=== PATIENT | female | born 1965 | race Caucasian/White ===

== ENCOUNTER → 2023-05-01 10:46 | Outpatient (CLI) | payer OTHER, MEDICAID, SELFPAY ==
--- NOTE | 2023-05-01 | DI.RAD.S_ITS ---
PROCEDURE: FL JOINT INJECTION LARGE LT INDICATIONS: Other specified arthritis, left shoulder COMPARISON: None. TECHNIQUE: The indications, alternatives, benefits, risks, and complications of the procedure were explained to the patient. Written informed consent was obtained and placed in the chart. The patient was placed in an appropriate position on the fluoroscopy table, and a site was chosen for percutaneous access under fluoroscopic guidance. The site was prepped and draped in a sterile fashion. Local anesthetic was administered using a 1% lidocaine solution. A hypodermic or spinal needle was then used to access the symptomatic joint. Intra-articular location of the needle tip was confirmed by injecting a small amount of contrast, followed by steroid administration. The needle was then withdrawn, and a bandage applied to the puncture site. FINDINGS: Joint injected: Left shoulder Medications injected: 4 mL of 40 mg/mL Kenalog and 0.5% Ropivacaine mixture. Patient's pain before injection: 8 out of 10. Patient's pain after injection: 0 out of 10. Complications: None. IMPRESSION: Successful fluoroscopically guided administration of steroid and anaesthetic solution into the left shoulder joint. Patient reports at she has had prior steroid injections into the shoulder joint. Dictated by: Luke Wooten M.D. on 05/01/2023 at 14:37 Approved by: Luke Wooten M.D. on 05/01/2023 at 14:39
[2023-05-01] MEDS: ROPIVACAINE 0.5% PF 5 MG/ML 20ML VIAL 20 ML INJ (11:15)
[2023-05-01] MEDS: TRIAMCINOLONE 40 MG/ML VIAL INTRA-ARTI (11:15)
[2023-05-01] MEDS: LIDOCAINE 1% 20 ML INJ (11:15)
== END ==
PROVIDERS: PCP Physician Assistant; Referring Provider Physician Assistant Surgical; Visit Provider Physician Assistant Surgical
DX: M13.812 Other specified arthritis, left shoulder (principal)
CPT/HCPCS: 20610; 77002

== ENCOUNTER 2023-10-20 11:25 | Emergency (ER) | payer OTHER, MEDICAID, SELFPAY ==
[2023-10-20 11:38] VITALS: BP 129/54; PULSE 82; RESP 16; TEMP 36.9; O2SAT 96; BMI 39.4
--- NOTE | 2023-10-20 11:53 | ED_ITS ---
HPI - Extremity Problem <Mark Jones PA-C - Last Filed: 10/20/23 14:02> General Chief complaint: Extremity Problem,Nontraumatic Stated complaint: poss blood clot R leg, had knee surgery 10/07 Time Seen by Provider: 10/20/23 11:53 Source: patient Mode of arrival: Wheelchair History of Present Illness HPI Narrative: This is a 58-year-old female presents emergency department due to right lower extremity edema after OR for a right knee surgery [address] Murdock. Surgery was performed without complications, patient was discharged on ASA 81 mg b.i.d. which she has been taking as prescribed. She was noticed some pain and swelling to the right knee down on her right lower extremity. Denies any pain out of proportion, numbness, fevers, or any other concerning signs or symptoms. Patient's daughter reports that the patient has been walking ?all over it?, with minimal elevation. Related Data Home Medications Medication Instructions Recorded Confirmed lorazepam 1 mg tablet ##0 04/13/16 Previous Rx's Medication Instructions Recorded clonazepam 1 mg tablet (Klonopin) 1 mg PO BID PRN ##14 04/13/16 Allergies Allergy/AdvReac Type Severity Reaction Status Date / Time acetaminophen [From Vicodin] Allergy Verified 10/20/23 11:49 buspirone Allergy Verified 10/20/23 11:49 gabapentin Allergy Verified 10/20/23 11:49 hydrocodone [From Vicodin] Allergy Verified 10/20/23 11:49 midazolam [From Versed] Allergy Verified 10/20/23 11:49 Penicillins Allergy Verified 10/20/23 11:49 Review of Systems <Mark Jones PA-C - Last Filed: 10/20/23 14:02> Review of Systems Narrative: GENERAL: Denies chills, fatigue, malaise, fever, sweats. HEENT: Denies sinus pain, ear pain, sore throat, difficulty swallowing, dizziness. RESPIRATORY: Denies dyspnea, cough, wheezing, hemoptysis, sputum. CARDIOVASCULAR: Denies chest pain, palpitations, orthopnea, edema, GASTROINTESTINAL: Denies nausea, vomiting, abdominal pain, diarrhea, constipation, melena. : Denies dysuria, frequency, incontinence, hematuria, urinary retention. MUSCULOSKELETAL: Right lower extremity pain and edema SKIN: Denies rash, skin lesions, or other NEUROLOGIC: Denies weakness, headache, numbness, change in speech, confusion, seizures, incoordination. PSYCHIATRIC: No concerning psychosocial issues. 12 point review of systems is negative except for those stated above Patient History <ELIZABETH Caldwell Last Filed: 10/20/23 14:02> Social History Smoking Status: Former smoker Smoking Status: Former smoker alcohol intake frequency: other Substance Use Type: does not use Exam <ELIZABETH Caldwell Last Filed: 10/20/23 14:02> Narrative Exam Narrative: GENERAL: Well-developed patient, in mild distress. HEAD: Atraumatic. Normocephalic. EYES: Pupils equal round and reactive. Extraocular motions intact. No scleral icterus. No injection or drainage. ENT: Nose without bleeding, purulent drainage. Throat without erythema, tonsillar hypertrophy or exudate. Airway patent. NECK: Trachea midline. Non tender EXTREMITIES: Diffuse 1+ pitting edema to the right lower extremity from the knee down. No significant spreading erythema or purulent drainage from the incision. She was neurovascularly intact. NEURO: AOx3. SKIN: No rash or erythema of visible areas Initial Vital Signs Initial Vital Signs: Vital Signs Temperature 98.4 F 10/20/23 11:38 Pulse Rate 82 10/20/23 11:38 Respiratory Rate 16 10/20/23 11:38 Blood Pressure 129/54 L 10/20/23 11:38 Pulse Oximetry 96 10/20/23 11:38 Oxygen Delivery Method Room Air 10/20/23 11:38 <Ye Mondragon DO - Last Filed: 10/20/23 14:26> Initial Vital Signs Initial Vital Signs: Vital Signs Temperature 98.4 F 10/20/23 11:38 Pulse Rate 82 10/20/23 11:38 Respiratory Rate 16 10/20/23 11:38 Blood Pressure 129/54 L 10/20/23 11:38 Pulse Oximetry 96 10/20/23 11:38 Oxygen Delivery Method Room Air 10/20/23 11:38 Course <ELIZABETH Caldwell Last Filed: 10/20/23 14:02> Orders Ordered: ED Orders 10/20/23 12:11 US periph venous low extrem rt Stat 10/20/23 12:25 CBC Auto Diff [Complete Blood Count AUTO DIFF] Stat Vital Signs Vital signs: Vital Signs - 8 hr 10/20/23 11:38 10/20/23 12:21 10/20/23 13:30 Temperature 98.4 F Pulse Rate 82 78 Pulse Rate [Right] 74 Respiratory Rate 16 Blood Pressure 129/54 L 135/63 Pulse Oximetry 96 94 Oxygen Delivery Method Room Air Room Air <Ye Mondragon DO - Last Filed: 10/20/23 14:26> Orders Ordered: ED Orders 10/20/23 12:11 US periph venous low extrem rt Stat 10/20/23 12:25 CBC Auto Diff [Complete Blood Count AUTO DIFF] Stat Vital Signs Vital signs: Vital Signs - 8 hr 10/20/23 11:38 10/20/23 12:21 10/20/23 13:30 Temperature 98.4 F Pulse Rate 82 78 Pulse Rate [Right] 74 Respiratory Rate 16 Blood Pressure 129/54 L 135/63 Pulse Oximetry 96 94 Oxygen Delivery Method Room Air Room Air MDM - Extremity (Nontraumatic) <Mark Jones PA-C - Last Filed: 10/20/23 14:02> Lab Data 10/20/23 12:25 Labs: Lab Results 10/20/23 Range/Units 12:25 WBC 10.4 (4.5-11.0) X10^3/uL RBC 3.29 L (4.0-5.2) X10^6/uL Hgb 9.4 L (12.0-16.0) g/dL Hct 27.8 L (36-46) % MCV 84.4 (80-100) fL MCH 28.7 (26-34) PG MCHC 34.0 (30-36) % RDW 14.6 (11.6-14.8) % Plt Count 428 H (150-400) X10^3/uL Neut % (Auto) 60.5 (50-75) % Lymph % (Auto) 22.3 L (25-40) % [place] % (Auto) 11.8 (3-14) % Eos % (Auto) 4.1 H (2-4) % Baso % (Auto) 1.3 (0-2) % Neut # (Auto) 6300 (1742-7020) /uL Lymph # (Auto) 2300 (0981-5593) /uL [place] # (Auto) 1200 H (0-900) /uL Eos # (Auto) 400 (0-450) /uL Baso # (Auto) 100 (0-100) /uL Imaging Data US - DVT: Radiologist's Impression: [address] [address] Ultrasound Report Signed Patient: Ange Rodriguez MR#: [id number] : 1965 Acct:[id number] Age/Sex: 58 / F Date of Service: 10/20/23 Loc: ED Accession Number: [id number] Procedure: US periph venous low extrem rt Ordering Provider: Mark Jones P.A-C PROCEDURE: US PERIPH VENOUS LOW EXTREM RT INDICATIONS: RLE swelling after OR 10 days ago TECHNIQUE: Real-time imaging, as well as color and pulse Doppler interrogation, were performed of the lower extremity deep veins from the inguinal ligament to the popliteal fossa, with documentation of the visualized calf veins. COMPARISON: None. FINDINGS: The common femoral, femoral, popliteal, and the visualized calf veins are normally compressible, and free of intraluminal thrombus. Color and pulse Doppler demonstrate normal phasic intraluminal flow. There is normal augmentation response to distal compression maneuver. Soft tissue edema is present consistent with inflammation. IMPRESSION: No findings of lower extremity deep venous thrombosis. Dictated by: Marysol Rodgers M.D. on 10/20/2023 at 13:50 Approved by: Marysol Rodgers M.D. on 10/20/2023 at 13:53 MDM Narrative Medical decision making narrative: ED course: This is a 58-year-old female presents emergency department due to concerns for right lower extremity edema after knee surgery 10 days ago. Ultrasound was ordered which was negative for DVT. Lab work showed no leukocytosis and low concern for cellulitic infection. Suspect the swelling to the knees due to the lack of compliance with elevation that the daughter reported. Recommended elevation as well as compression stockings. She was neurovascularly intact throughout. No pain with passive extension and good pulses and sensation, compartment where soft and low concern for compartment syndrome CC: Right lower extremity swelling Complicating co-morbidities: None obtained Data collected from: Previous notes Medical records reviewed: None available to review Differential considered, but not limited to: Compartment syndrome, routine edema postop, DVT, infection Exam documented above, pertinent findings include: As above in the ED course Lab Test results independently reviewed as above. Pertinent findings: No leukocytosis. Patient did appear mildly anemic although no evidence of active bleeding. Imaging studies independently reviewed: Ultrasound DVT was negative Scores Used: None MIPS Elements: None Consultations: None Treatments: None Re-evaluations: None Discussion: Discussed plan with the patient was comfortable with the plan Diagnosis: Lower extremity edema Disposition: see below, along with detailed discharge instructions that have been reviewed with patient as well as indications for ED re-evaluation and additional outpatient follow up <Ye Mondragon DO - Last Filed: 10/20/23 14:26> Lab Data Labs: Lab Results 10/20/23 Range/Units 12:25 WBC 10.4 (4.5-11.0) X10^3/uL RBC 3.29 L (4.0-5.2) X10^6/uL Hgb 9.4 L (12.0-16.0) g/dL Hct 27.8 L (36-46) % MCV 84.4 (80-100) fL MCH 28.7 (26-34) PG MCHC 34.0 (30-36) % RDW 14.6 (11.6-14.8) % Plt Count 428 H (150-400) X10^3/uL Neut % (Auto) 60.5 (50-75) % Lymph % (Auto) 22.3 L (25-40) % [place] % (Auto) 11.8 (3-14) % Eos % (Auto) 4.1 H (2-4) % Baso % (Auto) 1.3 (0-2) % Neut # (Auto) 6300 (5352-6514) /uL Lymph # (Auto) 2300 (7374-5702) /uL [place] # (Auto) 1200 H (0-900) /uL Eos # (Auto) 400 (0-450) /uL Baso # (Auto) 100 (0-100) /uL Discharge Plan Departure Patient Disposition: Home Clinical Impression: Lower extremity edema Activity Restrictions/Additional Instructions: Thank you for coming to the [facility] Emergency Department today. As we discussed your lab work was reassuring and there was no evidence of infection. The ultrasound was negative for DVT or ?blood clot?. I suspect that the swelling is due to not enough elevation of your right leg. Please do your best to elevated through the majority of the day as well as using the compression stockings you have been given. Please return to the emergency department if you develop any fevers, severe pain, or any other concerning signs or symptoms. I hope you feel better soon. Please follow up with your primary care provider within a week if your symptoms continue. If you do not have a primary care provider please contact the [facility] Resource line at [phone]. They will ask some questions about your medical history and help you get set up with a provider in the community. Prescriptions: No Action lorazepam 1 MG tablet Qty: 0 clonazepam [Klonopin] 1 MG tablet 1 mg PO BID PRNQty: 14 0RF Referrals: Su Bird PA-C [Primary Care Provider] - Stand Alone Forms: Patient Portal/API ED Sign-out <Ye Mondragon DO - Last Filed: 10/20/23 14:26> [facility] Dr Mondragon Co-Sign Statement: I was available for consultation during this patient's emergency department visit. This chart is signed by myself for administrative purposes only. I did not have direct contact with this patient during this visit. They were seen independently by the APC.
--- NOTE | 2023-10-20 12:11 | DI.US.S_ITS ---
PROCEDURE: US PERIPH VENOUS LOW EXTREM RT INDICATIONS: RLE swelling after OR 10 days ago TECHNIQUE: Real-time imaging, as well as color and pulse Doppler interrogation, were performed of the lower extremity deep veins from the inguinal ligament to the popliteal fossa, with documentation of the visualized calf veins. COMPARISON: None. FINDINGS: The common femoral, femoral, popliteal, and the visualized calf veins are normally compressible, and free of intraluminal thrombus. Color and pulse Doppler demonstrate normal phasic intraluminal flow. There is normal augmentation response to distal compression maneuver. Soft tissue edema is present consistent with inflammation. IMPRESSION: No findings of lower extremity deep venous thrombosis. Dictated by: Marysol Rodgers M.D. on 10/20/2023 at 13:50 Approved by: Marysol Rodgers M.D. on 10/20/2023 at 13:53
[2023-10-20 12:21] VITALS: PULSE 74
[2023-10-20 12:41] LABS: Add Manual Diff / Slide Review NO; Basophils Absolute Auto 100 /uL (0-100); Basophils Percent Auto 1.3 % (0-2); Eosinophils Absolute Auto 400 /uL (0-450); Eosinophils Percent Auto 4.1 % (2-4); Hematocrit 27.8 % (36-46); Hemoglobin 9.4 g/dL (12.0-16.0); Lymphocytes Absolute Auto 2300 /uL (1100-4500); Lymphocytes Percent Auto 22.3 % (25-40); Mean Corpuscular Hemoglobin 28.7 PG (26-34); Mean Corpuscular Volume 84.4 fL (80-100); Monocytes Absolute Auto 1200 /uL (0-900); Monocytes Percent Auto 11.8 % (3-14); Neutrophils Absolute Auto 6300 /uL (1500-7000); Neutrophils Percent Auto 60.5 % (50-75); Platelet Count 428 X10^3/uL (150-400); Red Blood Cell Count 3.29 X10^6/uL (4.0-5.2); Red Cell Distribution Width 14.6 % (11.6-14.8); White Blood Cell Count 10.4 X10^3/uL (4.5-11.0)
[2023-10-20 13:30] VITALS: BP 135/63; PULSE 78; O2SAT 94
== END 2023-10-20 14:23 | disposition home or self-care (01) ==
PROVIDERS: Emergency Provider Physician Assistant Medical; PCP Physician Assistant
DX: R60.0 Localized edema (principal); Z98.890 Other specified postprocedural states
CPT/HCPCS: 36415; 85025; 93971; 99283; 99284